=== PATIENT | female | born 1940 | race Caucasian/White ===

== ENCOUNTER → 2018-07-07 | Outpatient (CLI) | payer MEDICARE, OTHER ==
[~2018-07-07] MED LIST: ARTHROTEC 775 MG/TAB PO; CAL-CITRATE PLU1 TAB PO; FE-TABS325 MG PO; FOLIC ACID 40400 MCG PO; GLUCOSAMINE CHO1 CAP PO; POTASSIUM-9999 MG PO; VITAMIN B-1000 MCG/T PO; VITAMIN C PO; [UNRECOGNIZED DRUG - OTHER] PO
== END ==
LOC: COL.RAD 09:00
DX: M16.11 Unilateral primary osteoarthritis, right hip (principal)
CPT/HCPCS: J3301; Q9967

== ENCOUNTER → 2019-08-25 | Outpatient (CLI) | payer MEDICARE, OTHER | LOC: COL.RAD 11:55 | DX: M79.604 Pain in right leg (principal); M54.31 Sciatica, right side; M25.551 Pain in right hip | CPT/HCPCS: J3301 ==